=== PATIENT | female | born 1990 | race Caucasian/White ===

== ENCOUNTER 2021-05-17 11:16 | Inpatient (IN) | payer MEDICAID, OTHER ==
[~2021-05-17] VITALS: Ht 162.6 cm; Wt 78.9 kg
[2021-05-17 11:44] LABS: *BILIRUBIN,URIN NEGATIVE (NEGATIVE); *BLOOD, URINE 2+ (NEGATIVE); *CLARITY,URINE CLEAR (CLEAR); *COLOR,URINE YELLOW (YELLOW); *KETONES,URINE NEGATIVE (NEGATIVE); *UROBILINOGEN,URINE 0.2 E.U./dl (NORMAL); LEUKOCYTE ESTERASE ,URINE NEGATIVE (NEGATIVE); NITRITE, URINE NEGATIVE (NEGATIVE); UGLUCOSE NEGATIVE (NEGATIVE)
[2021-05-17] MEDS ORDERED: ONDANSETRON 4 MG/2 ML VIAL IV ONE (11:45)
[2021-05-17] MEDS ORDERED: IV NORMAL SALINE 1000 ML BAG IV ONE (11:45)
--- NOTE | 2021-05-17 11:45 | NUR ---
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
--- NOTE | 2021-05-17 11:45 | NUR ---
Jeff rubin in [facility] - 05/17/21 at 1538 by ASHLEIGH start
[2021-05-17 11:49] LABS: MEAN CORPUSCULAR HEMOGLOBIN 29.7 uug (24.7-32.8); MEAN CORPUSCULAR VOLUME 86.4 fL (75.5-95.3); PLATELET COUNT (AUTO) 307 K/uL (179-408)
[2021-05-17 11:54] LABS: *URINE HCG, QUAL NEGATIVE (NEGATIVE)
[2021-05-17 11:58] LABS: CREATININE 0.7 mg/dL (0.6-1.3); POTASSIUM 3.6 mmol/L (3.5-5.1)
[2021-05-17 12:04] LABS: BILIRUBIN,TOTAL 0.6 mg/dL (0.2-1.0); TOTAL PROTEIN, SERUM 7.3 g/dL (6.4-8.2)
[2021-05-17] MEDS ORDERED: SWABABLE VALVE TRANSFER SET EA MC ONE (12:20)
[2021-05-17] MEDS ORDERED: IV NORMAL SALINE 250 ML IV ONE (12:20)
[2021-05-17] MEDS ORDERED: IOHEXOL 300MG/ML 100 ML INFUS..BTL ONE (12:20)
[2021-05-17 12:24] LABS: BACTERIA,URINE FEW /HPF (NONE SEEN); SQUAMOUS EPITHELIAL CELL,UR FEW /HPF (NONE SEEN)
--- NOTE | 2021-05-17 13:00 | NUR ---
IV NS 1L started 1141 completed 1241
--- NOTE | 2021-05-17 13:14 | NUR ---
Dr. Lee, surgeon, called and spoke to
[2021-05-17] MEDS ORDERED: PIPERACILLIN SODIUM/TAZOBACTAM 3.375 G in IV DEXTROSE 5% 50 ML IV ONE (13:15)
[2021-05-17] MEDS ORDERED: ACETAMINOPHEN 325 MG TABLET PO PRN (13:30)
[2021-05-17] MEDS ORDERED: HYDROCODONE/APAP 5-325MG TABLET PO PRN (13:30)
[2021-05-17] MEDS ORDERED: ONDANSETRON 4 MG/2 ML VIAL IV PRN (13:30)
[2021-05-17] MEDS ORDERED: MAGNESIUM HYDROXIDE 30 ML LIQUID UDC PO PRN (13:30)
[2021-05-17] MEDS ORDERED: MORPHINE SULFATE 2 MG/1 ML DISP.SYRIN IV PRN (13:30)
[2021-05-17] MEDS ORDERED: REMEDY ESSENTIAL ZINC PASTE 113 GM TP PRN (13:30)
[2021-05-17] MEDS ORDERED: PIPERACILLIN SODIUM/TAZOBACTAM 3.375 G in IV DEXTROSE 5% 50 ML IV SCH (14:00)
[2021-05-17] MEDS ORDERED: MORPHINE SULFATE 4 MG/1 ML DISP.SYRIN IV ONE (14:00)
[2021-05-17] MEDS ORDERED: PIPERACILLIN/TAZOBACTAM/D5W 50 ML IV ONE (14:34)
--- NOTE | 2021-05-17 14:36 | NUR ---
Zosyn, duplicate order.
--- NOTE | 2021-05-17 14:56 | NUR ---
Called report to SONIYA Douglas.
--- NOTE | 2021-05-17 15:00 | NUR ---
IV Zosyn started [id number] completed [id number]
--- NOTE | 2021-05-17 16:00 | NUR ---
Received patient from ER with c/o abdominal pain for x 3days and associated nausea,patient is alert and oriented x4,ambulating with steady gait. during face to face interview, patient denies any pain or discomfort at this time ,skin is dry and clean intact no skin breakdown .keep patient NPO for possible surgery.
--- NOTE | 2021-05-17 16:01 | NUR ---
UNABLE TO GIVE MS IV ,PATIENT ARRIVAL ROOM 302 AT 1600PM.
[2021-05-17 16:29] VITALS: BP 108/63
[2021-05-17] MEDS: IV D5 1/2 NS 1000 ML 1,000 ML IV PRN (19:42)
--- NOTE | 2021-05-17 20:00 | NUR ---
Received patient in bed. AAOX4. Able to make needs known. No skin issues noted. On room air. Patient is ambulatory. With IV access on RAC, 20 gauge. Started on IVF D5 1/2 NS running at 100 cc/hr. Patient denies pain. Patient reported abdomen is tender to touch. Pt is to be kept on NPO for surgery tomorrow. Consent signed and attached to chart. Bed in locked position, call light within reach. Will continue to monitor.
[2021-05-17 20:07] VITALS: BP 110/64
[2021-05-17] MEDS: PIPERACILLIN SODIUM/TAZOBACTAM 3.375 G in IV DEXTROSE 5% 100 ML IV SCH (21:11)
[2021-05-18 04:00] VITALS: BP 101/52
[2021-05-18 04:44] VITALS: BP 95/53
[2021-05-18] MEDS: PIPERACILLIN SODIUM/TAZOBACTAM 3.375 G in IV DEXTROSE 5% 100 ML IV SCH ×3 (05:15→21:42)
--- NOTE | 2021-05-18 05:17 | NUR ---
Patient through the night, with no complaints. Patient kept on NPO for surgery. Consent signed and pre-op checklist completed. Started on IV antibiotics and tolerating well. IVF running D5 1/2 NS at 100cc/hr. All needs attended to and met. Will endorse to day shift.
[2021-05-18 06:11] LABS: MEAN CORPUSCULAR HEMOGLOBIN 29.8 uug (24.7-32.8); MEAN CORPUSCULAR VOLUME 87.2 fL (75.5-95.3); PLATELET COUNT (AUTO) 256 K/uL (179-408)
[2021-05-18 06:22] LABS: CREATININE 0.8 mg/dL (0.6-1.3); PHOSPHOROUS 3.4 mg/dL (2.5-4.9); POTASSIUM 3.8 mmol/L (3.5-5.1)
[2021-05-18 06:52] LABS: THYROID STIMULATING HORMONE 1.161 mIU/mL (0.358-3.740)
[2021-05-18] MEDS ORDERED: BUPIVACAINE/EPI PF 0.25% 30 ML VIAL ONE (07:23)
[2021-05-18] MEDS ORDERED: BACITRACIN ZINC OINT 15 GM TUBE ONE (07:23)
[2021-05-18] MEDS ORDERED: LIDOCAINE HCL 1% 20 ML VIAL ONE (07:23)
--- NOTE | 2021-05-18 07:35 | NUR ---
Received pt. Vitals: 98.0 temp, BP 95/45, HR 76, Pain report of 05/11. Pt is going to have surgery at 0830, pickle cutter from OR at 0800. Report given to Lora from OR. Pt aware and ready for surgery, consent in chart, preop checklist completed.
[2021-05-18] MEDS ORDERED: FENTANYL CITRATE 250 MCG/5 ML AMPUL ONE (08:18)
[2021-05-18] MEDS ORDERED: ROCURONIUM BROMIDE 50 MG/5 ML VIAL ONE (08:18)
[2021-05-18] MEDS ORDERED: KETOROLAC TROMETHAMINE 30 MG INJ ONE (10:08)
[2021-05-18] MEDS ORDERED: FENTANYL CITRATE 100 MCG/2 ML AMPUL ONE (10:13)
--- NOTE | 2021-05-18 11:25 | NUR ---
Pt is back on unit. Blood pressure running on the lower end as before surgery. MD has been notified. Pt has complaint of pain 09/10. Q8H ibuprofen, tylenol and neurontin ordered by surgeon. Comfort measures provided, call light within reach. Family at bedside at this time.
[2021-05-18] MEDS: PANTOPRAZOLE SODIUM 40 MG VIAL IV SCH (11:58)
[2021-05-18 12:00] VITALS: BP 93/41
[2021-05-18] MEDS: ACETAMINOPHEN 325 MG TABLET PO SCH ×2 (12:00→20:03)
[2021-05-18] MEDS: GABAPENTIN 300 MG CAPSULE PO SCH ×2 (12:00→20:03)
[2021-05-18] MEDS: IBUPROFEN 800 MG TABLET PO SCH ×2 (12:00→20:03)
[2021-05-18 16:00] VITALS: BP 95/47
[2021-05-18] MEDS: IV D5 1/2 NS 1000 ML 1,000 ML IV PRN (20:07)
[2021-05-18 20:26] VITALS: BP 99/48
[2021-05-18 20:34] VITALS: BP 96/50
[2021-05-19 04:00] VITALS: BP 106/68
[2021-05-19] MEDS: ACETAMINOPHEN 325 MG TABLET PO SCH ×2 (05:19→13:34)
[2021-05-19] MEDS: GABAPENTIN 300 MG CAPSULE PO SCH ×2 (05:19→13:34)
[2021-05-19] MEDS: IBUPROFEN 800 MG TABLET PO SCH ×2 (05:19→13:34)
[2021-05-19] MEDS: PIPERACILLIN SODIUM/TAZOBACTAM 3.375 G in IV DEXTROSE 5% 100 ML IV SCH ×2 (05:20→13:34)
--- NOTE | 2021-05-19 05:41 | NUR ---
Pt slept throughout the night. C/o mild abdominal pain that is relieved by tylenol and motrin. Pt is passing gas, positive for bowel sounds, no bowel movement yet. Able to ambulate without assistance. Makes needs known. Safety maintained throughout shift. Will endorse to day shift.
[2021-05-19 06:30] LABS: HEMATOCRIT 36.7 % (31.2-41.9); MEAN CORPUSCULAR HEMOGLOBIN 29.4 uug (24.7-32.8); MEAN CORPUSCULAR VOLUME 88.1 fL (75.5-95.3); PLATELET COUNT (AUTO) 317 K/uL (179-408)
[2021-05-19 06:56] LABS: CREATININE 0.9 mg/dL (0.6-1.3); MAGNESIUM 2.3 mg/dL (1.8-2.4); PHOSPHOROUS 2.9 mg/dL (2.5-4.9)
[2021-05-19 07:45] VITALS: BP 107/52
[2021-05-19] MEDS: PANTOPRAZOLE SODIUM 40 MG VIAL IV SCH (09:26)
--- NOTE | 2021-05-19 10:44 | NUR ---
Pt is a/ox 4, no complaint of pain at this time. Pt is ambulating with no signs of dizziness or pain. Pt has not had BM yet but has been passing gas. Tolerating clear liquid diet well. No report of nausea or vomiting. Comfort measures provided, call light within reach. Family currently at bedside. Will continue to monitor.
[2021-05-19] MEDS ORDERED: HYDR-3972 PO (10:47)
[2021-05-19] MEDS ORDERED: CIPR-262 PO (10:47)
[2021-05-19] MEDS ORDERED: METR500T PO (10:47)
[2021-05-19 11:30] VITALS: BP 112/49
[2021-05-19] MEDS ORDERED: NEOSTIGMINE METHYLSULFATE 10 MG/10 ML VIAL IM ONE (14:59)
[2021-05-19] MEDS ORDERED: SUCCINYLCHOLINE CHLORIDE 200 MG/10 ML VIAL IV ONE (14:59)
[2021-05-19] MEDS ORDERED: DEXAMETHASONE SOD PHOSPHATE 4 MG INJ IV ONE (14:59)
[2021-05-19] MEDS ORDERED: GLYCOPYRROLATE 0.2 MG/ML VIAL IJ ONE (14:59)
[2021-05-19] MEDS ORDERED: PROPOFOL 200 MG/20 ML BOTTLE IV ONE (14:59)
[2021-05-19] MEDS ORDERED: LIDOCAINE-MPF 2% 5 ML VIAL IJ ONE (14:59)
[2021-05-19] MEDS ORDERED: ONDANSETRON 4 MG/2 ML VIAL IV ONE (14:59)
[2021-05-19] MEDS ORDERED: CEFAZOLIN 1 G VIAL IM ONE (14:59)
[2021-05-19] MEDS ORDERED: SEVOFLURANE 250 ML BOTTLE IH ONE (14:59)
--- NOTE | 2021-05-19 15:31 | NUR ---
Pt is discharged home via private car, being picked up by mother. Pt will be staying with mom for the time being until healed. Dressing was changed prior to discharge. Incision sites appeared clean and intact. Discharge education, materials, and prescriptions given to pt. All personal belongings at hand and signed for. Pt ambulated down to car by herself. IV and ID band have been removed. No complaint of pain at time of discharge and no signs of acute distress. Post surgical care explained to pt and provided educational materials.
== END 2021-05-19 15:00 | disposition home or self-care (01) | DRG 234 ==
LOC: ER 11:16 → MEDSURG3 15:32
PROVIDERS: ADMIT Registered Nurse; ATTEND Registered Nurse
PROC: 0DTJ4ZZ Resection of Appendix, Percutaneous Endoscopic Approach (ICD-10-PCS; principal; 2021-05-18)
DX: K35.80 Unspecified acute appendicitis (principal); E66.9 Obesity, unspecified; Z68.29 Body mass index [BMI] 29.0-29.9, adult; Z20.822 Contact with and (suspected) exposure to COVID-19
CPT/HCPCS: 36415; 71045; 83690; 83735; 84100; 84443; 84703; 85025; 85610; 86850; 86900; 86901; 87040; A4663; C9113; G0378; J0330; J0690; J1100; J1885; J2405; J2543; J3010; J3490; J7030; J7050; J7060; L8699; Q9967

== ENCOUNTER 2023-07-07 00:03 | Emergency (ER) | payer MEDICAID ==
[~2023-07-07] VITALS: Ht 157.5 cm; Wt 79.4 kg
[~2023-07-07 00:03] MED LIST: CIPR-262 PO; HYDR-3972 PO; METR500T PO
[2023-07-07] MEDS ORDERED: IBUPROFEN 800 MG TABLET ONE (00:30)
[2023-07-07] MEDS ORDERED: AMOXICILLIN-CLAVUL 875-125MG TABLET ONE (00:31)
[2023-07-07] MEDS: IBUPROFEN 800 MG TABLET PO ONE (00:32)
[2023-07-07] MEDS: AMOXICILLIN-CLAVUL 875-125MG TABLET PO ONE (00:32)
[2023-07-07] MEDS ORDERED: AMOX-430 PO (02:24)
[2023-07-07 02:27] VITALS: BP 116/73; O2SAT 97
== END 2023-07-07 02:27 | disposition home or self-care (01) ==
LOC: ER 00:06
DX: H04.301 Unspecified dacryocystitis of right lacrimal passage (principal); G43.909 Migraine, unspecified, not intractable, without status migrainosus; Z79.899 Other long term (current) drug therapy; Z88.1 Allergy status to other antibiotic agents
CPT/HCPCS: A4606; A4663